=== PATIENT | male | born 1990 | race Caucasian/White ===

== ENCOUNTER 2016-12-26 20:26 | Emergency (ER) | payer OTHER ==
--- NOTE | 2016-12-27 02:57 | ER ---
ADMIT: 12/26/2016 RM/LOC: ER [facility] MR#: [id number] [address] [id number] [place] [address] [place] [address] Emergency Room Report SEX: M AGE: 26 : 1990 DATE: 12/26/2016 The patient is a 26-year-old male, complaining of perirectal median raphae folliculitis since . He has been on three different antibiotics since by Dr. George. Currently, on Avelox and doxycycline. States he spiked a fever today. Pain is as high as an 8, relieved 50% with over-the- counter ibuprofen. The patient denies any prior history of perirectal abscess. Exam remarkable for nontoxic, afebrile male with non-pointing median raphae tenderness rectal, otherwise negative. CT abdomen and pelvis shows phlegmon. No air-fluid level in the median raphae. White count 13.9, absolute neutrophil count 10.7, CRP 9.47, lactic 0.8, procalcitonin less than 0.05. The patient was given vancomycin and meropenem. Advised to continue Avelox and doxycycline. Follow up Dr. Adam George within 48 hours. Silvio Sy MD/ ahmet JOB #: [id number] CC: Silvio Sy MD, Attending Physician Adam George MD, Family Physician Adam George MD
== END 2016-12-27 00:50 | disposition home or self-care (01) ==
LOC: ER 20:26
DX: L73.9 Follicular disorder, unspecified (principal); I50.9 Heart failure, unspecified; F17.220 Nicotine dependence, chewing tobacco, uncomplicated; Z88.0 Allergy status to penicillin; Z79.899 Other long term (current) drug therapy